=== PATIENT | male | born 1965 | race Caucasian/White ===

== ENCOUNTER 2018-11-17 13:39 | Emergency (ER) | payer BC, SELFPAY ==
[2018-11-17 13:41] VITALS: BP 155/80; PULSE 81; RESP 18; TEMP 36.9; O2SAT 97; BMI 27.4
--- NOTE | 2018-11-17 14:05 | RAD_ITS ---
STUDY: X-RAY - LEFT HAND, ATTENTION FIFTH FINGER REASON FOR EXAM: Male, 53 years old. INFECTION OF THE FIFTH DIGIT TECHNIQUE: 3 view(s) of the finger were obtained. COMPARISON: None. FINDINGS: Normal metacarpal head. Normal metacarpophalangeal joint. Normal proximal phalanx. Normal middle phalanx. Normal distal phalanx. There is mild degenerative arthrosis of the proximal interphalangeal joint. There is mild degenerative arthrosis of the distal interphalangeal joint. There is diffuse soft tissue swelling of the fifth digit. No soft tissue gas is seen. RAD/Finger(s) Min 2 Views IMPRESSION: 1. Diffuse soft tissue swelling without demonstrated erosive/destructive bony process. Electronically Signed: Wilbert Marie MD at 14:28 EST , Service support ,
--- NOTE | 2018-11-17 14:47 | ED.DCSUM_ITS ---
- ER Visit Summary Date of Service: 11/17/18 Chief Complaint: Finger infection History of Present Illness: The patient is a 53 M who states that about 1 week ago he cut his left little finger on the distal dorsum surface. He does not know on what he cut his finger. He does work on the [employer]. He states that he began to have redness. He states that on Monday he went to the urgent care and was started on doxycycline. Also received a tetanus shot. He notes that the area around the initial infection is better but he notes redness extending now up to the MCP joint. He is able to flex and extend the finger. He denies any fevers or streaks up the arm. Physical Examination: Afebrile vital signs stable The left little finger demonstrates a healing cut. From the DIP joint to the MCP joint there is increased warmth mild swelling erythema. There is also some purplish discoloration to the skin. There is no lymphangitic streaking. I am able to flex and extend the joints. There is no crepitus. Neurovascularly intact Test Results: X-rays did not demonstrate a foreign body or air Emergency Department Course and Treatment: We will change the patient to Keflex and Bactrim. Have him follow-up with plastics return if worsening or concerns. Impression: 1. Cellulitis of the left little finger This note was generated with [employer] dictation software. It may contain incorrect words, spelling, and punctuation that were not noted in review of the chart prior to signing ED Disposition - Plan for ED Patient: Disposition: Home or Assisted Living Instructions: ED Infec Skin Cellulitis Prescriptions: Cephalexin [Keflex] 500 mg PO Q6 #28 cap Smz/Tmp Ds [Bactrim Ds] 1 tab PO BID #14 tab Referrals: Harmeet Mary MD [STAFF PHYSICIAN] - (call on monday to arrange early follow up or return to ed if concerns or worsening)
== END 2018-11-17 15:10 | disposition home or self-care (01) ==
PROVIDERS: Emergency Provider Emergency Medicine; Referring Provider Internal Medicine Cardiovascular Disease
DX: L03.012 Cellulitis of left finger (principal); I10 Essential (primary) hypertension; E78.00 Pure hypercholesterolemia, unspecified; Z79.2 Long term (current) use of antibiotics; Z79.899 Other long term (current) drug therapy
CPT/HCPCS: 73140; 99282

== ENCOUNTER → 2018-12-01 10:37 | Outpatient (CLI) | payer BC, SELFPAY ==
[2018-11-28 12:28] VITALS: BMI 27.4
[2018-12-01 11:42] LABS: AST(SGOT) 24 U/L (15-37); Alanine Aminotransfer ALT/SGPT 28 U/L (16-61); Albumin, Serum 4.2 g/dL (3.2-5.0); Alkaline Phosphatase 79 U/L (45-117); Anion Gap 8 (5-15); BUN 14 mg/dL (7-18); BUN/Creat Ratio 12.7 RATIO (10-20); Bilirubin, Direct 0.22 mg/dL (0.00-0.30); Calcium,Total 8.8 mg/dL (8.5-10.1); Chloride 107 mmol/L (98-107); Cholesterol 173 mg/dL (200); EST Glomerular Filtration Rate 74 mL/min (>60); Est Glom Filt Rate - Afr Amer 89 mL/min (>60); Glucose 96 mg/dL (74-106); High Density Lipoprotein 58 mg/dL; Potassium 4.3 mmol/L (3.5-5.1); Protein, Total 7.2 g/dL (6.4-8.2); Sodium Level 141 mmol/L (136-145); Thyroid Stim Hormone (TSH) 0.98 uIU/mL (0.358-3.74); Triglycerides 49 mg/dL; Very Low Density Lipoprotein 10 mg/dL (5-40)
== END ==
PROVIDERS: Referring Provider Internal Medicine Cardiovascular Disease; Visit Provider Internal Medicine Cardiovascular Disease
DX: E78.5 Hyperlipidemia, unspecified (principal); I10 Essential (primary) hypertension
CPT/HCPCS: 36415; 80048; 80061; 80076; 84153; 84443; G0103

== ENCOUNTER → 2018-12-10 11:43 | Outpatient (CLI) | payer BC, SELFPAY ==
[2018-11-28 12:28] VITALS: BMI 27.4
--- NOTE | 2018-12-10 11:47 | ECHOD_ITS ---
Reason For Study: Hypertension Procedure This was a 2D Doppler, Color Flow transthoracic echocardiogram. Exam performed in department. Left Ventricle Normal LV size. Left ventricular systolic function is normal. The estimated ejection fraction is 60 %. Stage 1 diastolic dysfunction. No regional wall motion abnormalities noted. Right Ventricle Normal RV size. Normal systolic function. Atria Normal left atrium. Normal right atrium. Mitral Valve Normal mitral valve. Tricuspid Valve Normal tricuspid valve. Aortic Valve Normal aortic valve. Trisinus/trileaflet aortic valve. Pulmonic Valve Normal pulmonic valve. Great Vessels Normal aortic root. The pulmonary artery is normal size. Inferior vena cava collapse with respiration. Pericardium/Pleural No pericardial effusion. MMode/2D Measurements & Calculations LVIDd: 5.1 cm IVSd: 1.0 cm Ao root diam: 2.9 cm LVIDs: 3.4 cm LVPWd: 0.82 cm RVDd: 3.5 cm FS: 32.3 % LAV(MOD-bp): 58.8 ml LA A4 area: 18.4 cm2 LA dimension(2D): 3.5 cm LAV(MOD-bp) Indexed: 28.1 ml/m2 LAV(MOD-sp2): 56.0 ml LAV(MOD-sp4): 56.4 ml RA A4 area: 13.6 cm2 Doppler Measurements & Calculations MV E max bobby: 53.3 cm/sec Lat Peak E' Bobby: 11.7 cm/sec Med Peak E' Bobby: 7.1 cm/sec MV A max bobby: 65.7 cm/sec E/E' lat: 4.5 E/E' med: 7.5 MV E/A: 0.81 Ao V2 max: 141.0 cm/sec LV V1 max: 136.8 cm/sec PA V2 max: 128.0 cm/sec Ao max P.0 mmHg LV V1 max P.5 mmHg Interpretation Summary Normal LV size. Left ventricular systolic function is normal. The estimated ejection fraction is 60 %. Stage 1 diastolic dysfunction. Ordering Physician: Dick Arias Referring Physician: NO PCP Performed By: Mary Rossi, ARMAAN, RVT
--- NOTE | 2018-12-10 14:03 | STRESSREP ---
Stress Test Report Exercise stress test. 53-year-old man with a history of chest pain. Stress protocol: Resting EKG demonstrates normal sinus rhythm with a rate of 64 bpm normal intervals are noted. The patient exercised according to the regular Shravan protocol for total duration of 10 minutes the maximum heart rate attained was 148 bpm which was 89% of maximum predicted heart rate the maximum workload was 11.4 metabolic equivalents. Patient completed stage IV of the Shravan protocol. At rest there were no ST or T wave changes noted suggest ischemia peak exercise upsloping ST changes and were noted with no meet the criteria for ischemia. The resting blood pressure 134/86 with a peak blood pressure 180/86 rate pressure product was 25,300. Conclusion: Exercise stress test with no EKG evidence for ischemia at a high workload. Excellent functional capacity No arrhythmias noted.
== END ==
PROVIDERS: Referring Provider Internal Medicine Cardiovascular Disease; Visit Provider Internal Medicine Cardiovascular Disease
DX: I10 Essential (primary) hypertension (principal); E78.5 Hyperlipidemia, unspecified
CPT/HCPCS: 93017; 93306

== ENCOUNTER → 2019-12-03 16:06 | Outpatient (CLI) | payer BC, SELFPAY ==
[2019-12-03 17:26] LABS: AST(SGOT) 21 U/L (15-37); Alanine Aminotransfer ALT/SGPT 29 U/L (16-61); Albumin, Serum 3.9 g/dL (3.2-5.0); Alkaline Phosphatase 80 U/L (45-117); Bilirubin, Direct 0.12 mg/dL (0.00-0.30); Cholesterol 171 mg/dL (200); Globulin 3.3 g/dL (2.2-4.2); High Density Lipoprotein 52 mg/dL; Protein, Total 7.2 g/dL (6.4-8.2); Triglycerides 99 mg/dL; Very Low Density Lipoprotein 20 mg/dL (5-40)
== END ==
PROVIDERS: Referring Provider Internal Medicine Cardiovascular Disease; Visit Provider Internal Medicine Cardiovascular Disease
DX: E78.5 Hyperlipidemia, unspecified (principal)
CPT/HCPCS: 36415; 80061; 80076

== ENCOUNTER 2020-11-03 10:28 | Emergency (ER) | payer SELFPAY ==
[2020-11-03 10:29] VITALS: BP 152/82; PULSE 65; RESP 18; TEMP 36.6; O2SAT 100; BMI 25.7
--- NOTE | 2020-11-03 11:23 | ED.VISSUMM ---
- ER Visit Summary Date of Service: 11/03/20 Chief Complaint: Right ring and small finger laceration shot in truck tailgate History of Present Illness: The patient is a 55 M dominance past medical history of hypertension. Tetanus up-to-date within the last 3 years. 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 This occurred within the last 2 hours. He denies any other injuries. Physical Examination: Middle-aged male no acute distress vital signs stable afebrile. H EENT exam unremarkable. Lungs clear to auscultation. Heart regular rhythm no murmur. Abdomen soft nontender. Moving all 4 extremities. Neurovascular intact specifically right hand palmar aspect right ring finger is a V-shaped laceration along the proximal PIP joint. Also on the midportion palmar side of the right small finger. Along the PIP. He is able to completely extend and flex both digits. There is no gross bony deformity. No obvious foreign body there is only mild oozing of blood. No pulsatile bleeding. No bony deformity. He has normal touch sensation in tips of his fingers. Otherwise exam unremarkable. Test Results: Right hand x-ray 3 views interpreted by myself 3 views shows soft tissue laceration right ring finger around the PIP joint. No involvement of the bone, joint no fracture no foreign body noted. Also read by the radiologist. Procedure note right ring finger digital block using lidocaine. Once proper anesthetic was obtained I cleaned the wound using Shur-Clens copiously irrigated with saline and washed with saline after the patient already washed his hand here explored the wound density foreign body. There is no signs of tendon, joint or bony involvement. There is no foreign body. It was closed using 11 simple interrupted 4-0 Ethilon sutures. Proper hemostasis wound closure obtained patient tolerated procedure well. Post closure of the wound he had good cap refill. He is able to do full flexion-extension. He was instructed on wound care. Emergency Department Course and Treatment: Right hand lacerations to right ring and small finger. Cleaned in the sink. Washed with saline and Shur-Clens and explored. Treatment Plan: Wound care daily. Antibiotic ointment. Keep it clean at work. Keflex 3 times daily for 5 days to try to prevent infection. Ice and elevate. To decrease pain and swelling. Tylenol Motrin for pain. Suture removal in 14 days. Disposition: Discharge Impression: Right hand ring finger laceration with ER repair meters. Small laceration right small finger no repair needed This note was generated with [employer] dictation software. It may contain incorrect words, spelling, and punctuation that were not noted in review of the chart prior to signing ED Disposition - Plan for ED Patient: Referrals: Care Physician,No Primary [NON-STAFF] -
--- NOTE | 2020-11-03 11:35 | RAD_ITS ---
STUDY: X-RAY - RIGHT HAND REASON FOR EXAM: Male, 55 years old. Trauma to right ring finger and small fingers, laceration TECHNIQUE: 3 view(s) of the hand. COMPARISON: None. FINDINGS: Normal radiocarpal articulation. Normal distal radioulnar joint. Normal visualized carpal bones. Normal carpal articulations Normal carpometacarpal articulation of the thumb. Normal second through fifth carpometacarpal joints. Normal metacarpi. Normal metacarpophalangeal joint of the thumb. Normal interphalangeal joint of the thumb. Normal proximal and distal phalanges of the thumb. Normal metacarpophalangeal joints of the second through fifth fingers. Normal proximal and distal interphalangeal joints of the second through fifth fingers. Normal phalanges of the second through fifth fingers. Soft tissue swelling and laceration along the ventral aspect of the fourth digit at the level of the middle phalanx. No radiopaque foreign body is seen. RAD/Hand Min 3 Views IMPRESSION: Soft tissue laceration and soft tissue swelling along the ventral aspect of the fourth digit at the level of the middle phalanx. Electronically Signed: Shubham Johnson MD at 11:55 EST , Service support ,
[2020-11-03] MEDS: Lidocaine 1% (20 ml mdv) 20 ML Vial 10 ML INFILT (12:25)
--- NOTE | 2020-11-03 12:49 | ED.DEP ---
ED Disposition - Plan for ED Patient: Disposition: Home or Assisted Living Instructions: ED Laceration, Hand: All Closures Prescriptions: Cephalexin [Keflex] 500 mg PO Q8 #15 cap Prescription Printed Referrals: Lenny Delgadillo MD [STAFF PHYSICIAN] - 10-14 Days suture removal Additional Instructions: Keep hand dry and clean you may get it wet but do not soak in any water or dirty water. Clean daily with soap and water or peroxide and water. Ply antibiotic twice daily. Keep it clean at work. Ice and elevate to decrease pain and swelling next 2 to 3 days. Tylenol Motrin for pain. Watch for any signs of infection such as pus, redness, streaks, fever or swelling if seen return. Suture removal in 14 days. Keflex 1 pill 3 times a day for 5 days to try to prevent infection.
== END 2020-11-03 13:02 | disposition home or self-care (01) ==
PROVIDERS: Emergency Provider Emergency Medicine; PCP Internal Medicine Cardiovascular Disease
DX: S61.214A Laceration without foreign body of right ring finger without damage to nail, initial encounter (principal); S61.216A Laceration without foreign body of right little finger without damage to nail, initial encounter; W23.0XXA Caught, crushed, jammed, or pinched between moving objects, initial encounter; Y93.9 Activity, unspecified; Y92.9 Unspecified place or not applicable; I10 Essential (primary) hypertension; Z79.899 Other long term (current) drug therapy
CPT/HCPCS: 12002; 73130; 99283

== ENCOUNTER → 2021-03-27 09:25 | Outpatient (CLI) | payer SELFPAY ==
[2021-03-23 08:57] VITALS: BMI 25.5
[2021-03-27 10:46] LABS: AST(SGOT) 13 U/L (15-37); Alanine Aminotransfer ALT/SGPT 25 U/L (16-61); Alkaline Phosphatase 85 U/L (45-117); Bilirubin, Direct 0.13 mg/dL (0.00-0.30); Cholesterol 187 mg/dL (200); Globulin 2.9 g/dL (2.2-4.2); High Density Lipoprotein 54 mg/dL; Protein, Total 6.9 g/dL (6.4-8.2); Triglycerides 52 mg/dL; Very Low Density Lipoprotein 10 mg/dL (5-40)
== END ==
PROVIDERS: Referring Provider Internal Medicine Cardiovascular Disease; Visit Provider Internal Medicine Cardiovascular Disease
DX: E78.00 Pure hypercholesterolemia, unspecified (principal)
CPT/HCPCS: 36415; 80061; 80076

== ENCOUNTER → 2022-03-26 | Outpatient (CLI) | payer OTHER, SELFPAY ==
[2022-03-26 08:52] LABS: AST(SGOT) 17 U/L (15-37); Alanine Aminotransfer ALT/SGPT 25 U/L (16-61); Albumin, Serum 3.8 g/dL (3.2-5.0); Alkaline Phosphatase 67 U/L (45-117); Bilirubin, Direct 0.17 mg/dL (0.00-0.30); Cholesterol 144 mg/dL (200); Globulin 2.6 g/dL (2.2-4.2); High Density Lipoprotein 51 mg/dL; Protein, Total 6.4 g/dL (6.4-8.2); Triglycerides 58 mg/dL; Very Low Density Lipoprotein 12 mg/dL (5-40)
== END | disposition home or self-care (01) ==
PROVIDERS: Referring Provider Nurse Practitioner Gerontology; Visit Provider Nurse Practitioner Gerontology
DX: E78.5 Hyperlipidemia, unspecified (principal)
CPT/HCPCS: 36415; 80061; 80076

== ENCOUNTER → 2024-04-27 | Outpatient (CLI) | payer OTHER, SELFPAY ==
[2024-04-27 10:29] LABS: Absolute Lymphocyte Count 33.62 X10^3/uL (0.83-4.51); Basophil% 0.5 % (0-1); Eosinophil# 0.17 X10^3/uL; Eosinophils% 0.4 % (0-5); Hematocrit 43.5 % (40-54); Lymphocyte # 33.62 X10^3/ul (0.83-4.51); Lymphocyte % 88.8 % (19-41); Mean Corp Hgb Conc 32.2 g/dL (32-36); Mean Corpuscular Hgb 29.2 pg (27.0-32.0); Mean Corpuscular Volume 90.8 fL (80-94); Mean Platelet Vol. 9.8 fl (6.2-12.0); Monocyte# 0.74 X10^3/uL; NRBC Flagged by Analyzer 0 % (0-5); Neutrophil # 3.02 X10^3/uL (2.7-7.7); POSITIVE COUNT YES; POSITIVE DIFFERENTIAL YES; POSITIVE MORPHOLOGY YES; Platelet Count 124 K/mm3 (150-450); RBC Distribution Width CV 13.3 % (11.6-14.6); RBC Distribution Width SD 44.3 fl (35.1-43.9); Red Blood Count 4.79 M/mm3 (4.6-6.2); White Blood Count 37.9 K/mm3 (4.4-11.0)
[2024-04-27 10:33] LABS: Differential Indicated SCAN CRITERIA MET
[2024-04-27 10:59] LABS: ALB/GLOB Ratio 1.4 RATIO (0.9-2.4); AST(SGOT) 19 U/L (15-37); Alanine Aminotransfer ALT/SGPT 24 U/L (16-61); Albumin, Serum 3.9 g/dL (3.2-5.0); Alkaline Phosphatase 74 U/L (45-117); Anion Gap 3 (5-15); BUN 16 mg/dL (7-18); BUN/Creat Ratio 13.4 RATIO (10-20); Calcium,Total 8.7 mg/dL (8.5-10.1); Chloride 110 mmol/L (98-107); Cholesterol 146 mg/dL (200); Creatinine, Serum 1.19 mg/dL (0.70-1.30); EST Glomerular Filtration Rate 66 mL/min (>60); Est Glom Filt Rate - Afr Amer 80 mL/min (>60); Globulin 2.8 g/dL (2.2-4.2); Glucose 100 mg/dL (74-106); High Density Lipoprotein 51 mg/dL; PSA,Total - Annual Screen 8.44 ng/mL (0.00-4.00); Potassium 4.5 mmol/L (3.5-5.1); Protein, Total 6.7 g/dL (6.4-8.2); Sodium Level 139 mmol/L (136-145); Thyroid Stim Hormone (TSH) 1.38 uIU/mL (0.358-3.74); Triglycerides 57 mg/dL; Very Low Density Lipoprotein 11 mg/dL (5-40)
[2024-04-29 08:01] LABS: Vitamin D,25 Hydroxy 50.1 ng/mL
[2024-04-29 13:45] LABS: Pathologist Review Reviewed
== END | disposition home or self-care (01) ==
PROVIDERS: PCP Family Medicine; Referring Provider Family Medicine; Visit Provider Family Medicine
DX: Z12.11 Encounter for screening for malignant neoplasm of colon (principal); Z12.5 Encounter for screening for malignant neoplasm of prostate; I10 Essential (primary) hypertension; E78.00 Pure hypercholesterolemia, unspecified
CPT/HCPCS: 36415; 80053; 80061; 82306; 84153; 84443; 85025; G0103

== ENCOUNTER → 2024-05-04 | Outpatient (CLI) | payer OTHER, SELFPAY ==
[2024-05-04 11:14] LABS: Absolute Lymphocyte Count 33.05 X10^3/uL (0.83-4.51); Absolute Neutrophil Count 2.8 X10^3/uL (2.0-7.7); Basophil# 0.15 X10^3/uL; Basophil% 0.4 % (0-1); Eosinophil# 0.21 X10^3/uL; Eosinophils% 0.6 % (0-5); Hematocrit 43.7 % (40-54); Hemoglobin 14.1 g/dL (13.0-16.5); Lymphocyte # 33.05 X10^3/ul (0.83-4.51); Mean Corp Hgb Conc 32.3 g/dL (32-36); Mean Corpuscular Hgb 29.7 pg (27.0-32.0); Mean Platelet Vol. 9.8 fl (6.2-12.0); Monocyte# 0.81 X10^3/uL; Monocyte% 2.2 % (0-10); NRBC Flagged by Analyzer 0 % (0-5); Neutrophil # 2.75 X10^3/uL (2.7-7.7); Neutrophil % 7.4 % (47-70); POSITIVE COUNT YES; POSITIVE DIFFERENTIAL YES; POSITIVE MORPHOLOGY YES; Platelet Count 130 K/mm3 (150-450); RBC Distribution Width CV 13.4 % (11.6-14.6); RBC Distribution Width SD 45.3 fl (35.1-43.9); Red Blood Count 4.75 M/mm3 (4.6-6.2)
[2024-05-04 11:24] LABS: White Blood Count 37.1 K/mm3 (4.4-11.0)
[2024-05-04 11:25] LABS: Differential Indicated SCAN CRITERIA MET
[2024-05-04 12:33] LABS: Differential Comment SCANNED; Reactive Lymphocyte 1+; Smudge Cells 1+
[2024-05-06 15:46] LABS: Pathologist Review Reviewed
== END | disposition home or self-care (01) ==
PROVIDERS: PCP Family Medicine; Referring Provider Family Medicine; Visit Provider Family Medicine
DX: D72.829 Elevated white blood cell count, unspecified (principal)
CPT/HCPCS: 36415; 85025

== ENCOUNTER → 2024-07-04 | Outpatient (CLI) | payer OTHER, SELFPAY ==
--- NOTE | 2024-07-04 12:50 | RAD_ITS ---
STUDY: X-RAY - ORBITS REASON FOR EXAM: Male, 59 years old. MRI CLEARANCE TECHNIQUE: 2 view(s) of the orbits were obtained. COMPARISON: None. FINDINGS: Normal bilateral orbits without a metallic orbital foreign body. Normal visualized facial bones. Normal paranasal sinuses. The soft tissue structures are unremarkable. RAD/Orbits for Foreign Body IMPRESSION: No demonstrated metallic orbital foreign body. The patient is cleared for an MRI examination. Electronically Signed: Shubham Johnson MD at 13:00 EDT ,
--- NOTE | 2024-07-04 12:51 | MRI_ITS ---
STUDY: MR PROSTATE GLAND/ PELVIS WITH T WITHOUT CONTRAST REASON FOR EXAM: Male, 59 years old. ELEVATED psa TECHNIQUE: Standardized fat and water weighted pulse sequences were obtained in all 3 orthogonal planes, pre-and post contrast administration. IV 17ml clariscan was administered for the contrast portion of the examination. COMPARISON: None. FINDINGS: Prostate gland volume/size: 5.34 x 4.55 x 4.21 cm which is mildly enlarged. Anterior fibromuscular stroma: Normal Peripheral zone: Right zone moderate sized septated cystic mass nearly occupying the full width of the right peripheral zone measuring 2.43 x 1.73 cm and does not demonstrate any postcontrast enhancement but is bright on diffusion-weighted sequence and dark on ADC map which suggest neoplastic features, possibly a necrotic or poorly vascularized cystic tumor. Some minor linear fibrotic opacities are seen in the left peripheral zone which is otherwise unremarkable. Central zone: Diffusely heterogeneous, nodular, and multicystic on the left and right and with diffuse postcontrast enhancement except a few nonenhancing low signal nodules/fibrotic opacities. Features of BPH are present. Transitional zone: Diffusely heterogeneous, nodular, and multicystic on the left and right and with diffuse postcontrast enhancement except a few nonenhancing low signal nodules/fibrotic opacities. Features of BPH are present. Prostate capsule: Intact: Seminal vesicles: Normal bilaterally Pelvic sidewall lymphadenopathy: None demonstrated Bony structures: No lytic or blastic lesions or abnormally enhancing lesions. Normal urinary bladder. Normal visualized small intestine. There are multiple colonic diverticula of the sigmoid colon consistent with chronic diverticulosis. There is no pelvic fluid. There is no pelvic mass lesion or lymphadenopathy. Normal abdominal wall. MRI/Pelvis W/WO Contrast IMPRESSION: 1. Peripheral zone: Right zone moderate sized septated cystic mass nearly occupying the full width of the right peripheral zone measuring 2.43 x 1.73 cm and does not demonstrate any postcontrast enhancement but is bright on diffusion-weighted sequence and dark on ADC map which suggest neoplastic features, possibly a necrotic or poorly vascularized cystic tumor. 2. PI-RADS 4: high (clinically significant cancer is likely to be present) 3. If PSA remains in the malignant range or increases further assessment with prostate PET/CT scan is recommended as well as urologic evaluation and intervention. 4. Targeted ultrasound guided biopsy can also be performed with definitive pathologic assessment of the tissue and diagnosis. Reference information: Normal prostate tissue Benign prostatic hypertrophy cancer/tumor - low signal peripheral , transitional, and central zones malignancy appears as bright on DWI and low signal on ADC map Prostate imaging-reporting and data system (PI-RADS) PI-RADS 1: very low (clinically significant cancer is highly unlikely to be present) PI-RADS 2: low (clinically significant cancer is unlikely to be present) PI-RADS 3: intermediate (the presence of clinically significant cancer is equivocal) PI-RADS 4: high (clinically significant cancer is likely to be present) PI-RADS 5: very high (clinically significant cancer is highly likely to be present) PI-RADS X: component of exam technically inadequate or not performed Prostate malignancy distribution: Peripheral zone: 70-80% Transitional zone: 10-20% Central zone: 5% or less Electronically Signed: Avery Larsen MD at 8:25 EDT ,
== END | disposition home or self-care (01) ==
LOC: MRI 12:44
PROVIDERS: PCP Family Medicine; Referring Provider Urology; Visit Provider Urology
DX: R97.20 Elevated prostate specific antigen [PSA] (principal); N40.0 Benign prostatic hyperplasia without lower urinary tract symptoms
CPT/HCPCS: 70030; 72197; A9575

== ENCOUNTER → 2024-07-22 | Outpatient (CLI) | payer OTHER, SELFPAY ==
--- NOTE | 2024-07-22 | IMM_PTH ---
PATHOLOGY RESULTS PATIENT: BEN SMART LOC: [facility] U#:[id number] AGE/SX: 59/M ROOM: RE07/22/[address]: Dr. Lencho Samuel MD : 1965 BED: DIS: 07/22/2024 SPEC #: [id number] RECD: 07/25/24 08:32 STATUS: ROBEL REQ #: [id number] GENEVIEVE: 07/22/24 00:[address]: Lencho Samuel DEPT: IMMUNOHISTOCHEMISTRY RECD BY: Dagoberto Sinclair ENTERED: 07/25/24 08:33 SP TYPE: IMMUNO OTHR DR: Roopa Zepeda MD Tissues: PROSTATE RIGHT Procedures: 34BE12 (add) P40 (initial) PHYSICIAN & INSTITUTION [place] [id number] SPECIMEN INFORMATION: Tissue Source: A- Right apex Clinical Info: Elevated PSA Specimen Number: [id number] CPT code: 13490,13200 METHODOLOGY: Deparaffinized sections of prefer/formalin-fixed tissue or PAP/DQ stained slides are incubated with monoclonal/polyclonal antibodies/oligonucleotide probes. Localization is made via biotin free immunoperoxidase method. Appropriate controls are performed and reacted as expected. Results on target cell population are indicated in the following table: RESULTS: ANTIBODY / CLONE RESULT Block A P40 (BC28) positive 34BE12 (34BE12) positive These tests were developed and their performance characteristics determined by [facility]. They may not have been cleared or approved by the U.S. Food and Drug Administration. The FDA has determined that such clearance or approval is not necessary. The above immunohistochemical/dualISH markers are ordered and reviewed by the Pathologist. INTERPRETATION: A. Prostate, right apex, core biopsy: Focal high-grade prostatic intraepithelial neoplasia (HGPIN). 07/25/2024
--- NOTE | 2024-07-22 13:00 | PROSBIL_PTH ---
PATHOLOGY RESULTS PATIENT: BEN SMART LOC: [facility] U#:[id number] AGE/SX: 59/M ROOM: RE07/22/[address]: Dr. Lencho Samuel MD : 1965 BED: DIS: 07/22/2024 SPEC #: [id number] RECD: 07/23/24 10:02 STATUS: ROBEL SHONDA #: [id number] GENEVIEVE: 07/22/24 13:[address]: Lencho Samuel DEPT: SURGICAL PATHOLOGY RECD BY: Callie Lowery ENTERED: 07/23/24 10:03 SP TYPE: PROST BX OTHR DR: Roopa Zepeda MD Tissues: PROSTATE RIGHT PROSTATE RIGHT PROSTATE RIGHT PROSTATE LEFT PROSTATE LEFT PROSTATE LEFT Procedures: PROSTATE BX HEADER OPERATION: Prostate biopsy PRE-OP DIAGNOSIS: Elevated PSA TISSUE SUBMITTED: A - Right apex, B - Right mid, C - Right base, D - Left apex, E - Left mid, F - Left base MICROSCOPIC DIAGNOSIS A. Right prostate, apex, core biopsy: Focal high-grade prostatic intraepithelial neoplasia (HGPIN). See comment. B. Right prostate, mid, core biopsy: Prostatic tissue, negative for malignancy. Focal acute and chronic inflammation. C. Right prostate, base, core biopsy: Focal high-grade prostatic intraepithelial neoplasia (HGPIN). Chronic inflammation. D. Left prostate, apex, core biopsy: Prostatic tissue, negative for malignancy. Focal chronic inflammation. E. Left prostate, mid, core biopsy: Prostatic tissue, negative for malignancy. F. Left prostate, base, core biopsy: Prostatic tissue, negative for malignancy. 07/24/2024 COMMENT A. Immunohistochemistry ([id number]) supports the above diagnosis. MICROSCOPIC DESCRIPTION Slides are reviewed. GROSS DESCRIPTION A - Received is one container designated prostate, right apex. The specimen consists of two elongated fragments of light andrews-white soft tissue measuring 0.5 and 1.4 cm in length and 0.1 cm in diameter. The specimen is totally submitted in one cassette. B - Received is one container designated prostate, right mid. The specimen consists of two elongated fragments of light andrews-white soft tissue measuring 1.3 and 1.7 cm in length and 0.1 cm in diameter. The specimen is totally submitted in one cassette. C - Received is one container designated prostate, right base. The specimen consists of two elongated fragments of light andrews-white soft tissue measuring 0.3 and 1.0 cm in length and 0.1 cm in diameter. The specimen is totally submitted in one cassette. D - Received is one container designated prostate, left apex. The specimen consists of one elongated fragments of light andrews-white soft tissue measuring 1.2 cm in length and 0.1 cm in diameter. The specimen is totally submitted in one cassette. E - Received is one container designated prostate, left mid. The specimen consists of one elongated fragments of light andrews-white soft tissue measuring 1.5 cm in length and 0.1 cm in diameter. The specimen is totally submitted in one cassette. F - Received is one container designated prostate, left base. The specimen consists of one elongated fragments of light andrews-white soft tissue measuring 1.3 cm in length and 0.1 cm in diameter. The specimen is totally submitted in one cassette. / SJ.mr 07/23/2024 TC:5 CPT: 60003 x6
== END | disposition home or self-care (01) ==
PROVIDERS: PCP Family Medicine; Referring Provider Urology; Visit Provider Urology
DX: R97.20 Elevated prostate specific antigen [PSA] (principal)
CPT/HCPCS: 88305; 88341; 88342; G0416

== ENCOUNTER → 2025-02-01 | Outpatient (CLI) | payer MEDICARE, SELFPAY | END | disposition home or self-care (01) | PROVIDERS: PCP Family Medicine; Referring Provider Urology; Visit Provider Urology | DX: R97.20 Elevated prostate specific antigen [PSA] (principal) | CPT/HCPCS: 36415; 84153 ==

== ENCOUNTER → 2025-04-18 | Outpatient (CLI) | payer MEDICARE, SELFPAY ==
--- NOTE | 2025-04-18 11:09 | FLU_PTH ---
PATIENT: BEN SMART LOC: [facility] U#:[id number] AGE/SX: 59/M ROOM: RE04/18/[address]: Dr. Malik Luna MD : 1965 BED: DIS: 04/18/2025 SPEC #: [id number] RECD: 04/18/25 13:17 STATUS: ROBEL SHONDA #: [id number] GENEVIEVE: 04/18/25 11:[address]: Malik Luna DEPT: CYTOLOGY RECD BY: Dagoberto Sinclair ENTERED: 04/21/25 08:49 SP TYPE: Fluid OTHR DR: Roopa Zepeda MD Tissues: A - Urine Procedures: Special Stain Group II Surgery Specimen Level IV Cytospin Fluid HEADER OPERATION: Not noted PRE-OP DIAGNOSIS: Hematuria TISSUE SUBMITTED: A- Urine for cytology - voided DIAGNOSIS CYTOLOGY A. Urine, voided (cytospin): - Rare atypical urothelial cell. CYTOLOGY STUDY Slides are reviewed. CYTOLOGY GROSS A. Received is 4 ml of hazy-yellow fluid labeled with the patient's name and and designated per the requisition as "urine." Submitted for cytology preparation. 04/21/2025 CPT: 92071
[2025-04-18 13:18] LABS: Cytology, Body Fluid / CSF SEE PATHOLOGY REPORT
== END | disposition home or self-care (01) ==
LOC: LABSPEC 13:14
PROVIDERS: PCP Family Medicine; Visit Provider Family Medicine
DX: R31.9 Hematuria, unspecified (principal)
CPT/HCPCS: 87086; 87088; 88108; 88305; 88313

== ENCOUNTER → 2025-05-08 | Outpatient (CLI) | payer MEDICARE, SELFPAY ==
--- NOTE | 2025-05-08 15:53 | CT_ITS ---
PROCEDURE: CT ABD/PELVIS W/WO CONTRAST 05/08/2025 REASON FOR EXAM: PAINLESS HEMATURIA Single episode. TECHNIQUE: CT ABD/PELVIS W/WO CONTRAST Coronal and Sagittal reconstruction series were provided. CONTRAST: Isovue-300 VOLUME: 100 mL One or more dose reduction techniques were used (e.g., Automated exposure control, adjustment of the mA and/or kV according to patient size, use of iterative reconstruction technique. RADIATION DOSE SUMMARY: CTDlvol: 15 mGy DLP: 2170.97 mGycm COMPARISON: None FINDINGS: Lung bases: Lung bases are clear. Liver: Mild hepatomegaly. Gallbladder: Unremarkable Spleen: Marked degree of splenomegaly. Pancreas: Normal size without evidence of mass surrounding inflammation or ductal dilation. Adrenals: Unremarkable Kidneys: Unremarkable Bladder: Mild degree of diffuse bladder wall thickening. There is diffuse heterogeneous enlargement of the prostate with indentation at the bladder base. The prostate measures 5.6 cm by 4.4 cm. Bowel: Colonic diverticulosis without diverticulitis. Appendix: Unremarkable Lymph nodes: Unremarkable. Vasculature: Mild diffuse atherosclerotic calcifications are noted. Peritoneum / Retroperitoneum: Unremarkable Bones: Degenerative changes of the spine. CT/CT Abd/Pelvis W/WO Contrast IMPRESSION: Hepatomegaly. Marked degree of splenomegaly. Mild degree of diffuse bladder wall thickening. Diffuse enlargement of the prostate with indentation of the bladder base. Reading Location: [id number]
== END | disposition home or self-care (01) ==
LOC: CT 15:52
PROVIDERS: PCP Family Medicine; Referring Provider Family Medicine; Visit Provider Family Medicine
DX: R31.9 Hematuria, unspecified (principal)
CPT/HCPCS: 74178; Q9967

== ENCOUNTER 2025-08-19 07:51 | Day surgery (SDC) | payer MEDICARE, SELFPAY ==
--- NOTE | 2025-08-15 15:19 | PAT.ANESEVAL ---
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 When Was Last Pacemaker Check QUESTION #4 FULL TEXT: You/Your Family Experience fever (hyperthermia) with Anesthesia Last Oral Intake Last Oral intake: Last Oral Intake NPO since Meds taken in AM with sips of water? 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 Female No 08/15/25 14:18 HX of Motion Sickness No 08/15/25 14:18 HX of N/V After Surgery No 08/15/25 14:18 Non-Smoker No 08/15/25 14:18 Duration of Surgery greater No 08/15/25 14:18 than 60 minutes Number of Risk Factors PONV Score Height & Weight Height & Weight: Anesthesia: Height & Weight Height 5 ft 11 in 02/06/25 14:21 Respiratory Assessment Respiratory Assessment - shrimp boat captain: Respiratory Tract Infection Hx - shrimp boat captain Hx Respiratory Tract Infection No 08/15/25 14:18 STOP Sleep Apnea STOP Sleep Apnea - shrimp boat captain: STOP Sleep Apnea - shrimp boat captain Hx Hypertension Yes: PER PT, CONTROLLED ON 08/15/25 14:18 MEDS Hx Sleep Apnea No 08/15/25 14:18 CPAP BIPAP Do you snore loudly (louder No 08/15/25 14:18 than talking or can be heard Do you often feel tired/ No 08/15/25 14:18 fatigued/ sleepy during daytime? Has anyone observed you stop No 08/15/25 14:18 breathing during sleep? STOP Results Negative 08/15/25 14:18 QUESTION #5 FULL TEXT : Do you snore loudly (louder than talking or can be heard through closed doors)? 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 Specify any problems Hx of Preganancy in last 3 N/A 08/15/25 14:18 Months Nurse Filling Out Transfusion MGRIFFITH 08/15/25 14:18 & Questions: Date: 08/15/25 08/15/25 14:18 Time: 14:20 08/15/25 14:18 Patient unable to answer at this time (ie. confused, unrespo /Reproduction History /Reproductive History - shrimp boat captain: /Reproductive Hx- shrimp boat captain Hx Now Gestational Age (in weeks): EDC: Hx Hx Para Hx Section SAB Does the father of the baby or his family experience fever w Father of the baby Malignant Hypertension history comment FOR[facility]LY [facility], 1928–1983 Medical History (Updated 08/15/25 @ 14:27 by Deloris Rader) Prostate disease High cholesterol Chews tobacco History of echocardiogram History of stress test Cardiology follow-up encounter Chronic lymphocytic leukemia Prostatic intraepithelial neoplasia Abnormal CBC Elevated PSA Hyperlipidemia Essential (primary) hypertension Home Medications ?Medication ?Instructions ?Recorded ?Last Taken ?Type simvastatin 20 mg tablet 20 mg PO QHS #90 tabs 04/20/23 Unknown Rx amlodipine 10 mg tablet 10 mg PO QHS 08/15/25 Unknown History lisinopril 10 mg tablet 10 mg PO QHS 08/15/25 Unknown History Allergy/AdvReac Type Severity Reaction Status Date / Time No Known Allergies Allergy Verified 08/15/25 14:16 Family History Mother Diabetes Cancer esophagus Father Heart disease Myocardial infarction [place] age 42 CAD (coronary artery disease) Hypertension Brother Cancer esophagus Surgical History (Updated 08/15/25 @ 14:17 by Deloris Rader) History of colonoscopy Social History Smoking Status: Never smoker alcohol intake: current alcohol intake frequency: holidays/special occasions only substance use type: does not use caffeine: Yes Type: coffee Number of servings: 2 Audit: Pertinent Findings Pertinent Findings Consult pertinent findings: Cardiology 04/20/2023. Hypertension. Chronic under excellent control. Additional pertinent findings: WBC 42.4. 08/07/2025. Patient has history of CLL. Recommendation Anesthesia Recommendation Anesthesia recommendation: OPTIMIZED for anesthesia
[2025-08-19] VITALS (10 sets, daily range): BP systolic 96–131; BP diastolic 67–89; PULSE 57–71; RESP 16–18; TEMP 36.3–36.8; O2SAT 93–97; BMI 26.9
[2025-08-19] MEDS: Lactated Ringers 1,000 ML 15 ML IV (08:15)
--- NOTE | 2025-08-19 08:16 | H&P.OPEN ---
HPI - General HPI Narrative BEN SMART, is a 60 M who presents for screening colonoscopy. His last colonoscopy was 11 years ago. He had a hyperplastic polyp removed. He denies any abdominal pain or blood in the stool. No family history of colon cancer. [facility] Medical History (Updated 08/19/25 @ 08:[address] Chip Keller MD) Prostate disease High cholesterol Chews tobacco History of echocardiogram History of stress test Cardiology follow-up encounter Chronic lymphocytic leukemia Prostatic intraepithelial neoplasia Abnormal CBC Elevated PSA Hyperlipidemia Essential (primary) hypertension Home Medications ?Medication ?Instructions ?Recorded ?Last Taken ?Type simvastatin 20 mg tablet 20 mg PO QHS #90 tabs 04/20/23 Unknown Rx amlodipine 10 mg tablet 10 mg PO QHS 08/15/25 Unknown History lisinopril 10 mg tablet 10 mg PO QHS 08/15/25 Unknown History Allergy/AdvReac Type Severity Reaction Status Date / Time No Known Allergies Allergy Verified 08/19/25 08:11 Family History Mother Diabetes Cancer esophagus Father Heart disease Myocardial infarction [place] age 42 CAD (coronary artery disease) Hypertension Brother Cancer esophagus Surgical History (Updated 08/15/25 @ 14:17 by Deloris Rader) History of colonoscopy Social History Smoking Status: Never smoker alcohol intake: current alcohol intake frequency: holidays/special occasions only substance use type: does not use caffeine: Yes Type: coffee Number of servings: 2 Past Medical/Surgical History Planned Operation Planned Operative Procedure(s): COLONOSCOPY Cardiovascular Hx Hypertension: Yes Respiratory Do You Snore Loudly (louder than talking or can be heard): No Do You Often Feel Tired/ Fatigued/ Sleepy Dring Daytime?: No Has Anyone Observed You Stop Breathing During Sleep?: No Result (for STOP score): Negative Smoking Status: Never smoker Blood Disorder Hx High Cholesterol: Yes Miscellaneous Recent Exposure to Contagious Disease: No Allergies No Known Allergies Allergy (Verified 08/19/25 08:11) Discharge Is Pt Admitted From a Retirement, or a Half-Way: No Who Could Help: After D/C, Where Do you Plan to Go: Return Home Vital Signs Vital Signs Vital Signs: 08/19/25 08:11 08/19/25 08:11 08/19/25 08:11 Temperature 98.3 F Temperature Source Temporal Pulse Rate 68 Respiratory Rate 18 Respiratory Pattern Normal Blood Pressure 131/89 H Blood Pressure Mean 103 Blood Pressure Source Monitor Blood Pressure Position Semi-Fowlers Blood Pressure Location Left Arm Baseline BP 131/89 Pulse Ox 97 Oxygen Delivery Method Room Air Weight Weight: 193 lb 1.999 oz Body Mass Index (BMI) 26.9 Physical Exam Const alert and oriented x3 HEENT normocephalic Eyes PERRL Resp normal respiratory effort and normal air movement Cardio regular rate and regular rhythm GI soft to palpation, non-tender and non-distended Extremity normal to inspection Assessment & Plan Assessment/Plan (1) Screen for colon cancer: PLAN: I explained endoscopy in detail to the patient. I explained the risks including but not limited to stroke or heart attack with anesthesia, perforation of the GI tract, bleeding, infection. I explained that any of these could necessitate further emergency surgery. The patient understands and all questions were answered sufficiently. The patient wishes to proceed with procedure. Chip Keller MD Pager: [facility] [address] [place] [address], [address] [place] [address] Office: Surgery Risks - Colonoscopy Risks Include but are not Limited To: Risks include but are not limited to: Bleeding, perforation requiring further surgery, inability to complete colonoscopy requiring barium enema.
--- NOTE | 2025-08-19 08:19 | PCM.PRE.AN2 ---
ASA Classification* ASA Classification ASA Classification: 2 (HTN, tobacco use, CLL, sees heme/onc) Assessment & Plan Anesthesia* Anesthesia Assessment Anesthesia Assessment: Discussed sedation and/or anesthesia options, risks, benefits, and alternatives with patient/parents/legal guardian/POA. Questions invited. The patient/parents/legal guardian/POA seems to understand and agrees to proceed with anesthesia plan. Reviewed the physical assessment, medical history, allergy history and patient home medications list prior to surgery/procedure/anesthetic and documented any changes. Performed airway and anesthesia risk assessments. Anesthesia Type Anesthesia Type: MAC History Source History Obtained from:: Patient and Chart Anesthesia Focused Assessment* Temperature: 98.3 F Pulse Rate: 68 Blood Pressure: 131/89 Respiratory Rate: 18 Pulse Ox: 97 Oxygen Delivery Method: Room Air Airway Assessment Mouth opens: >3 cm Mallampati Score: II Neck Range of motion (ROM): Full ROM Labs Anesthesia Preop lab: CBC WBC, (4.4-11.0) 42.4 K/mm3 H* 08/07/25, 14: RBC, (4.6-6.2) 4.81 M/mm3 08/07/25, 14:43 Hgb, (13.0-16.5) 14.4 g/dL 08/07/25, : Hct, (40-54) 44.2 % 08/07/25, 14: Plt Count, (150-450) 126 K/mm3 L 08/07/25, 14:43 CHEMISTRY Potassium, (3.3-5.1) 4.5 mmol/L 08/07/25, 14:43 Sodium, (133-145) 142 mmol/L 08/07/25, 14:43 BUN, (4-19) 18 mg/dL 08/07/25, 14:43 Creatinine, (0.70-1.20) 1.42 mg/dL H 08/07/25, 14: Glucose, (70-99) 66 mg/dL L 08/07/25, 14: TSH, (0.358-3.74) 1.38 uIU/mL 04/27/24, 10:10 COAG Pre-Assessment Diagnosis/Proposed Procedure Planned Operative Procedure(s): COLONOSCOPY Anesthesia History 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 When Was Last Pacemaker Check QUESTION #4 FULL TEXT: You/Your Family Experience fever (hyperthermia) with Anesthesia Last Oral Intake Last Oral intake: Last Oral Intake NPO since 00:00 08/19/25 08:11 Meds taken in AM with sips of No 08/19/25 08:11 water? 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 - tax compliance representative Female No 08/15/25 14:18 HX of Motion Sickness No 08/15/25 14:18 HX of N/V After Surgery No 08/15/25 14:18 Non-Smoker No 08/15/25 14:18 Duration of Surgery greater No 08/15/25 14:18 than 60 minutes Number of Risk Factors PONV Score Height & Weight Height & Weight: Anesthesia: Height & Weight Height 5 ft 11 in 08/19/25 08:11 Weight: 87.6 kg 08/19/25 08:11 Body Mass Index (BMI) 26.9 08/19/25 08:11 Respiratory Assessment Respiratory Assessment - tax compliance representative: Respiratory Tract Infection Hx - tax compliance representative Hx Respiratory Tract Infection No 08/15/25 14:18 STOP Sleep Apnea STOP Sleep Apnea - tax compliance representative: STOP Sleep Apnea - tax compliance representative Hx Hypertension Yes 08/19/25 08:17 Hx Sleep Apnea No 08/15/25 14:18 CPAP BIPAP Do you snore loudly (louder No 08/19/25 08:17 than talking or can be heard Do you often feel tired/ No 08/19/25 08:17 fatigued/ sleepy during daytime? Has anyone observed you stop No 08/19/25 08:17 breathing during sleep? STOP Results Negative 08/19/25 08:17 QUESTION #5 FULL TEXT : Do you snore loudly (louder than talking or can be heard through closed doors)? 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 Specify any problems Hx of Preganancy in last 3 N/A 08/15/25 14:18 Months Nurse Filling Out Transfusion MGRIFFITH 08/15/25 14:18 & Questions: Date: 08/15/25 08/15/25 14:18 Time: 14:20 08/15/25 14:18 Patient unable to answer at this time (ie. 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 Chip Keller MD) Prostate disease High cholesterol Chews tobacco History of echocardiogram History of stress test Cardiology follow-up encounter Chronic lymphocytic leukemia Prostatic intraepithelial neoplasia Abnormal CBC Elevated PSA Hyperlipidemia Essential (primary) hypertension Home Medications ?Medication ?Instructions ?Recorded ?Last Taken ?Type simvastatin 20 mg tablet 20 mg PO QHS #90 tabs 04/20/23 Unknown Rx amlodipine 10 mg tablet 10 mg PO QHS 08/15/25 Unknown History lisinopril 10 mg tablet 10 mg PO QHS 08/15/25 Unknown History Allergy/AdvReac Type Severity Reaction Status Date / Time No Known Allergies Allergy Verified 08/19/25 08:11 Family History Mother Diabetes Cancer esophagus Father Heart disease Myocardial infarction [place] age 42 CAD (coronary artery disease) Hypertension Brother Cancer esophagus Surgical History (Updated 08/15/25 @ 14:17 by Deloris Rader) History of colonoscopy Social History Smoking Status: Never smoker alcohol intake: current alcohol intake frequency: holidays/special occasions only substance use type: does not use caffeine: Yes Type: coffee Number of servings: 2 Review of Systems (Anesthesia) ROS Narrative System reviewed and no additional complaints, except as documented. Physical Exam Const alert, oriented x3 and average body habitus Resp normal respiratory effort, normal air movement and clear to auscultation bilaterally Cardio regular rate, regular rhythm and no murmurs
--- NOTE | 2025-08-19 08:50 | OP.COLON_ITS ---
Patient Name: Jeff Montana Procedure Date: 08/19/2025 8:19 AM Date of : 1965 Age: 60 Procedure: Colonoscopy Indications: Screening for colorectal malignant neoplasm Providers: Chip Keller MD Medicines: Propofol per Anesthesia Patient Profile: This is a 60 year old male. Refer to note in patient chart for documentation of history and physical. Last Colonoscopy: more than 10 years ago. Complications: No immediate complications. Estimated blood loss: Minimal. Procedure: Pre-Anesthesia Assessment: - Prior to the procedure, a History and Physical was performed, and patient medications and allergies were reviewed. The patient's tolerance of previous anesthesia was also reviewed. The risks and benefits of the procedure and the sedation options and risks were discussed with the patient. All questions were answered, and informed consent was obtained. Prior Anticoagulants: The patient has taken no anticoagulant or antiplatelet agents. After reviewing the risks and benefits, the patient was deemed in satisfactory condition to undergo the procedure. After I obtained informed consent, the scope was passed under direct vision. Throughout the procedure, the patient's blood pressure, pulse, and oxygen saturations were monitored continuously. The Colonoscope was introduced through the anus and advanced to the cecum, identified by appendiceal orifice and ileocecal valve. The colonoscopy was performed without difficulty. The patient tolerated the procedure well. The quality of the bowel preparation was good. The ileocecal valve, appendiceal orifice, and rectum were photographed. Scope In: 8:37:04 AM Scope Withdrawal Time 0 hours 6 minutes 15 seconds Scope Out: 8:47:19 AM Total Procedure Duration Time 0 hours 10 minutes 15 seconds Findings: A small polyp was found in the rectum. The polyp was removed with a hot snare. Resection and retrieval were complete. The exam was otherwise without abnormality on direct and retroflexion views. Impression: - One small polyp in the rectum, removed with a hot snare. Resected and retrieved. - The examination was otherwise normal on direct and retroflexion views. Recommendation: - Discharge patient to home. - Resume previous diet. - Continue present medications. - Await pathology results. - Repeat colonoscopy in 5 years for surveillance based on pathology results. Procedure Code(s): --- Professional --- 49716, Colonoscopy, flexible; with removal of tumor(s), polyp(s), or other lesion(s) by snare technique Diagnosis Code(s): --- Professional --- Z12.11, Encounter for screening for malignant neoplasm of colon D12.8, Benign neoplasm of rectum CPT copyright 2021 [employer]. All rights reserved. The codes documented in this report are preliminary and upon tunnel miner review may be revised to meet current compliance requirements. Chip Keller MD 08/19/2025 8:49:51 AM This report has been signed electronically. Number of Addenda: 0 Note Initiated On: 08/19/2025 8:19 AM
--- NOTE | 2025-08-19 08:50 | OP.PROVAT_ITS ---
08/19/2025 Roopa Zepeda Md Re : Colonoscopy procedure for Jeff Montana Dear Katelyn This procedure was performed on Tuesday, August 19, 2025. My impressions and recommendations are as follows: Impressions : - One small polyp in the rectum, removed with a hot snare. Resected and retrieved. - The examination was otherwise normal on direct and retroflexion views. Recommendations : - Discharge patient to home. - Resume previous diet. - Continue present medications. - Await pathology results. - Repeat colonoscopy in 5 years for surveillance based on pathology results. My findings are described in the full procedure note, which is enclosed. If I can be of further assistance, please feel free to contact me at Doctor phone number(s): , Work: . Sincerely, Chip Keller MD 08/19/2025 8:49:51 AM This report has been signed electronically.
--- NOTE | 2025-08-19 08:56 | PCM.POST.ANE ---
Anesthesia: Postop Eval I Current Vital Signs Temperature: 97.4 F Pulse Rate: 71 Blood Pressure: 101/73 Respiratory Rate: 16 Pulse Ox: 95 Oxygen Delivery Method: Room Air Assessment Airway patent: Yes Spontaneous unlabored respirations: Yes Mental status: Asleep nausea: No Vomiting: No Anesthesia Complication: No Fluid Hydration Crystalloid volume administer (ml): 500 Total IV fluid infused: 500 Progress Note Anesthesia document: Postop Eval 1 completed: Yes
--- NOTE | 2025-08-19 09:00 | COLBX_PTH ---
PATIENT: BEN SMART LOC: EN U#:[id number] AGE/SX: 60/M ROOM: RE08/19/[address]: Dr. Chip Keller MD : 1965 BED: DIS: 08/19/2025 SPEC #: [id number] RECD: 08/19/25 09:36 STATUS: ROBEL SHONDA #: [id number] GENEVIEVE: 08/19/25 09:[address]: Chip Keller DEPT: SURGICAL PATHOLOGY RECD BY: Dagoberto Sinclair ENTERED: 08/19/25 11:26 SP TYPE: COLON BX OTHR DR: Roopa Zepeda MD Tissues: A - Rectum, NOS Procedures: Surgery Specimen Level IV HEADER OPERATION: Colonoscopy with polypectomy PRE-OP DIAGNOSIS: Screen for colon cancer TISSUE SUBMITTED: A- Rectal polyp MICROSCOPIC DIAGNOSIS A. Rectum, polypectomy: * Tubular adenoma MICROSCOPIC DESCRIPTION Slides are reviewed. GROSS DESCRIPTION A. Received in fixative is one container labeled with the patient's name and designated Rectal polyp. The specimen consists of multiple irregular fragments of andrews tissue that in aggregate measure 0.8 x 0.4 x 0.3 cm. The specimen is totally submitted in one cassette. PA 08/19/2025 CPT:44923
--- NOTE | 2025-08-19 13:36 | PCM.POSTANE2 ---
Anesthesia Postop Eval I Sum Postop Eval Completion status Anesthesia document: Postop Eval 1 completed: Yes Anesthesia Postop Eval I Summary Anesthesia Postop Eval I Summary: Anesthesia Postop Eval I: Assessment Summary Airway patent Yes 08/19/25 08:57 [email or web address] Spontaneous unlabored Yes 08/19/25 08:57 [email or web address] respirations Mental status Asleep 08/19/25 08:57 [email or web address] nausea No 08/19/25 08:57 [email or web address] Vomiting No 08/19/25 08:57 [email or web address] Anesthesia Postop Eval I: Fluid Summary Crystalloid volume administer 500 08/19/25 08:57 [email or web address] (ml) Colloids volume administered ( ml) Blood Product volume administered (ml) Total IV fluid infused 500 08/19/25 08:57 [email or web address] Anesthesia Postop Eval I: Summary Notes Anesthesia Complication No 08/19/25 08:57 [email or web address] Anesthesia Complication Comment: Post-operative progress note Anesthesia: Postop Eval II Evaluation Mental status: Awake Pain Level: 0 nausea: No Vomiting: No Complications Anesthesia Complication: No
== END 2025-08-19 09:41 | disposition home or self-care (01) ==
LOC: EN 07:52 → AC 07:54
PROVIDERS: PCP Family Medicine; Referring Provider Family Medicine; Visit Provider Surgery
PROC: 0DJD8ZZ Inspection of Lower Intestinal Tract, Via Natural or Artificial Opening Endoscopic (ICD-10-PCS; CPT 45378; principal; 2025-08-19 08:55)
DX: Z12.11 Encounter for screening for malignant neoplasm of colon (principal); D12.8 Benign neoplasm of rectum; E78.00 Pure hypercholesterolemia, unspecified; I10 Essential (primary) hypertension; Z86.0100 Personal history of colon polyps, unspecified; Z79.899 Other long term (current) drug therapy
CPT/HCPCS: 45385; 88305; J2405